=== PATIENT | male | born 1960 | race Caucasian/White ===

== ENCOUNTER → 2023-02-04 08:22 | Outpatient (BNVA) | payer SELFPAY | PROVIDERS: Family Provider Family Medicine; PCP Family Medicine; Visit Provider Family Medicine | DX: Z12.5 Encounter for screening for malignant neoplasm of prostate (principal); Z13.1 Encounter for screening for diabetes mellitus; Z51.81 Encounter for therapeutic drug level monitoring; Z13.220 Encounter for screening for lipoid disorders | CPT/HCPCS: 80053; 80061; 83036; 84153; 85025 ==

== ENCOUNTER 2023-11-12 09:14 | Day surgery (SDC) | payer SELFPAY ==
[2023-11-12] VITALS (10 sets, daily range): BP systolic 105–212; BP diastolic 64–111; PULSE 60–89; RESP 14–18; TEMP 36.3–36.6; O2SAT 95–100; BMI 29.8
--- NOTE | 2023-11-12 09:42 | ED_ITS ---
HPI - General Adult General: Chief complaint: Airway/Esophagus Foreign Body Stated complaint: sent by , food stuck in throat Time Seen by Provider: 11/12/23 09:42 History of Present Illness: 63-year-old [facility] of difficulty swallowing. Last night he was eating some fish states that seemed rather dry and then he began to have difficulty or felt like he was not able to swallow anything. When he tries to swallow liquids since then he will spit most of them back up he has had some success managing saliva he still feels like something is caught in his chest. He has had this in the past and required esophageal dilation. His last episode was nearly 20 years ago. Not on any anticoagulants. Onset (ago): hour(s) (12+) Associated symptoms: Deny chest pain, confusion, cough, diaphoresis, decreased appetite, dyspnea, fevers/chills, headache(s), malaise, nausea, rash, palpitations, seizures, short of breath, syncope, vomiting or weakness Treatments prior to arrival: none Review of Systems Const: Denies: malaise or diaphoresis Card: Denies: chest pain, palpitations or syncope Resp: Denies: dyspnea GI: Denies: nausea or vomiting : Denies: dysuria, urinary frequency or urinary urgency Musc: Denies: neck pain or back pain Skin/Breast: Denies: rash Neuro: Denies: headache(s) or confusion [facility] ED PFSH: Medical History (Updated 11/12/23 @ 11:18 by Cristiano Olmedo DO) Hypertension Surgical History (Updated 02/22/23 @ 14:30 by Leonard Marx MD) Esophageal dilatation 11/2016 History of meningioma Removed 06/05/2019 - Dr Jackman - Causing mid line shift Family History (Updated 02/22/23 @ 14:34 by Leonard Marx MD) Sister GERD (gastroesophageal reflux disease) Brother No problems noted. Father Kidney transplant recipient Social History (Updated 02/22/23 @ 14:33 by Leonard Marx MD) Smoking and tobacco/nicotine status: never used tobacco/nicotine Alcohol intake: current Substance/Drug Use: never Previous occupational history: [place] Physical Exam Const: COMMON NORMALS: no acute distress GENERAL APPEARANCE: cooperative and comfortable ORIENTATION/CONSCIOUSNESS: Yes awake, Yes oriented to person, Yes oriented to place and Yes oriented to time HENMT: COMMON NORMALS: normocephalic, atraumatic and hearing grossly normal bilaterally HEAD & SCALP: normocephalic and atraumatic Resp: COMMON NORMALS: normal respiratory effort, No retractions, No use of accessory muscles and clear to auscultation bilaterally AUSCULTATION: clear to auscultation bilaterally Cardio: COMMON NORMALS: regular rate, regular rhythm and No murmurs present (Cardio) RATE: regular rate RHYTHM: regular rhythm GI: COMMON NORMALS: Soft to palpation and No hepatosplenomegaly present AUSCULTATION: Yes normoactive bowel sounds PALPATION: Yes Soft to palpation, No Tenderness to palpation present (GI), No Guarding due to palpation present ( GI) and Yes No hepatosplenomegaly present Extremity: COMMON NORMALS: normal to inspection, capillary refill normal, no clubbing, cyanosis or edema, no calf tenderness and no pedal edema Neuro: SENSORIUM/ORIENTATION: Yes oriented to person, Yes oriented to place and Yes oriented to time Skin: COMMON NORMALS: no rashes or lesions noted GENERAL SKIN EXAM: no rashes or lesions noted Course Vital Signs: Vital signs: Vital Signs Temperature 97.8 F 11/12/23 10:20 Pulse Rate 65 11/12/23 10:20 Respiratory Rate 18 11/12/23 10:20 Blood Pressure 169/92 11/12/23 10:20 Pulse Oximetry 95 11/12/23 10:20 Oxygen Delivery Me thod Room Air 11/12/23 10:20 MDM - General Adult Medical Decision Making Esophageal food impaction discussed with Dr. Bardales will take patient to outpatient surgery for EGD and possible dilation as appropriate discharge from their Medical Records I reviewed the patient's medical records. No radiology studies performed this visit Discharge Plan Discharge Patient Disposition: Placed in Observation Clinical Impression: Esophageal obstruction due to food impaction Coding Level of Care Code ED Chrome Tanner for Salomón Hatch
[2023-11-12] MEDS: sodium chloride 0.9% 1,000 ML 30 ML IV (10:27)
[2023-11-12] MEDS: midazolam 1 mg/mL INJ 2 mL 2 MG IVP (10:28)
--- NOTE | 2023-11-12 10:37 | ANES.PREANE2 ---
Pre-Anesthetic Assessment Height/Weight: Height 2.01 m Weight 120.202 kg Temp Pulse Resp BP Pulse Ox O2 Del Method 97.8 F 65 18 169/92 95 Room Air 11/12/23 10:20 11/12/23 10:20 11/12/23 10:20 11/12/23 10:20 11/12/23 10:20 11/12/23 10:20 Operation Date: 11/12/23 11:45 Proposed Procedures p EGD with foreign body removal(Not Applicable) - Mitul Bardales MD Familial anesthetic complications: none Was Beta Celestine taken within 24 hours: N/A Was Clonidine taken within 24 hours: N/A Last intake: Intake Last Liquid Date 11/11/23 Last Liquid Time 18:00 Last Solid Date 11/11/23 Last Solid Time 18:00 Social No alcohol and No tobacco Exam alert, oriented x 3, clear to auscultation bilaterally and regular rate & rhythm Airway Mallampati: Class III Dentition: full CV/HEM Hypertension Metabolic Pre DM Anesthetic Plan ASA status: 3 Anesthesia: General Other: Food bolus Risk of > 500 ml blood loss (7ml/kg in children): No Medications/Allergies Home Medications Medication Instructions Recorded Confirmed Last Taken Type amlodipine 10 mg tablet 10 mg PO DAILY #90 tabs 02/08/23 02/08/23 Unknown Rx lisinopril 20 See Rx Instructions .Route 07/11/23 Unknown Rx mg-hydrochlorothiazide 12.5 mg .COMPLEX #90 tabs tablet carvedilol 12.5 mg tablet 12.5 mg PO BID #180 tabs 07/30/23 Unknown Rx lorazepam 0.5 mg tablet 0.5 mg PO BID PRN anxiety #7 tabs 11/12/23 Unknown Rx Allergies Allergy/AdvReac Type Severity Reaction Status Date / Time Penicillins Allergy Unknown Verified 11/12/23 09:17 Current Medications Generic Name Dose Route Start Last Admin Trade Name Freq PRN Reason Stop Dose Admin Sodium Chloride 1,000 mls @ 30 mls/hr 11/12/23 09:46 11/12/23 10:27 Sodium Chloride 0.9% IV 11/13/23 09:45 30 mls/hr .Q24H ONE Administration Midazolam HCl 2 mg 11/12/23 10:22 11/12/23 10:28 Midazolam 1 Mg/Ml Inj 2 Ml IVP 2 mg Q5M PRN Administration Preop Anxiety PFSH Anesthesia Medical History (Updated 02/22/23 @ 14:30 by Leonard Marx MD) Hypertension Surgical History (Updated 02/22/23 @ 14:30 by Leonard Marx MD) Esophageal dilatation 11/2016 History of meningioma Removed 06/05/2019 - Dr Jackman - Causing mid line shift Family History (Updated 02/22/23 @ 14:34 by Leonard Marx MD) Sister GERD (gastroesophageal reflux disease) Brother No problems noted. Father Kidney transplant recipient Social History (Updated 02/22/23 @ 14:33 by Leonard Marx MD) Smoking and tobacco/nicotine status: never used tobacco/nicotine Alcohol intake: current Substance/Drug Use: never Previous occupational history: [place] to [place] Data Anesthesia Cardiac Studies: No Data to Display
--- NOTE | 2023-11-12 11:56 | P.HP_ITS ---
Providers/Chief Complaint Primary Care Provider: Leonard Marx MD Chief Complaint: sent by , food stuck in throat History of Present Illness Antonio Harvey is a 63 year old male Who presented to the emergency department complaining of food being stuck in his throat. Per patient report he was eating dry face yesterday when he felt that something got stuck in the back of his throat, he had had this happen in the past about 20 years ago when he was eating a steak and it got stuck after that he has had several dilations of the esophagus. He is unable to swallow saliva and therefore he decided to present to the ER. Review of Systems General: Reports: 10 or more systems reviewed and unremarkable except in HPI and below Medications/Allergies Home Medications Medication Instructions Recorded Confirmed Last Taken Type amlodipine 10 mg tablet 10 mg PO DAILY #90 tabs 02/08/23 02/08/23 Unknown Rx lisinopril 20 See Rx Instructions .Route 07/11/23 Unknown Rx mg-hydrochlorothiazide 12.5 mg .COMPLEX #90 tabs tablet carvedilol 12.5 mg tablet 12.5 mg PO BID #180 tabs 07/30/23 Unknown Rx lorazepam 0.5 mg tablet 0.5 mg PO BID PRN anxiety #7 tabs 11/12/23 Unknown Rx Allergies Allergy/AdvReac Type Severity Reaction Status Date / Time Penicillins Allergy Unknown Verified 11/12/23 09:17 PFSH Acute PFSH: Medical History (Updated 11/12/23 @ 11:18 by Cristiano Olmedo DO) Hypertension Surgical History (Updated 02/22/23 @ 14:30 by Leonard Marx MD) Esophageal dilatation 11/2016 History of meningioma Removed 06/05/2019 - Dr Jackman - Causing mid line shift Family History (Updated 02/22/23 @ 14:34 by Leonard Marx MD) Sister GERD (gastroesophageal reflux disease) Brother No problems noted. Father Kidney transplant recipient Social History (Updated 02/22/23 @ 14:33 by Leonard Marx MD) Smoking and tobacco/nicotine status: never used tobacco/nicotine Alcohol intake: current Substance/Drug Use: never Previous occupational history: Used to [place] Vitals/I&O/Wt Last Vital Signs Temp 97.8 F 11/12/23 10:20 Pulse 65 11/12/23 10:20 Resp 18 11/12/23 10:20 BP 169/92 11/12/23 10:20 Pulse Ox 95 11/12/23 10:20 O2 Del Method Room Air 11/12/23 10:20 Weight last 48 hrs Weight 265 lb Physical Exam Narrative: After complete history, physical examination and review of all available clinical data the following is my assessment. Patient will benefit from Port-A-Cath placement. I have discussed all the risk and benefits of the procedure with the patient including the risk of pneumothorax requiring tube thoracostomy, risks of cannulation of the carotid artery, risk of injuring the blood vessels and heart at the level of the chest which will require emergent surgical intervention and could lead to , wound related complications including bleeding and infection, seroma formation, hematoma formation, long- term complications include infection of the catheter requiring excision, need for additional surgical procedures, nonfunction of the catheter, catheter migrat ion, catheter erosion into the skin. Patient shows understanding and wishes to proceed. Port-A-Cath placement will be booked for the next available clinical date. A&P Assessment and plan (1) Esophageal obstruction due to food impaction: Plan After complete history, physical examination and review of all available clinical data the following is my assessment. Patient will benefit from upper endoscopy with foreign body removal or disimpaction. Have discussed all the risk and benefits including the increased risk of perforation of the esophagus stomach or duodenum from the inflammation from the foreign body. I have discussed the risks of bleeding, need for additional procedures, need for transfer to higher level of care and emergent surgery. Patient agrees with the risk and benefits and wishes to proceed. Procedure will be done now and patient will be sent, after surgery. Attestations Medical Necessity Statement*: Patient will be discharged after GI procedure. Coding Level of Care Code Acute Code for Chg Fwd Diagnoses Esophageal obstruction due to food impaction T18.128A; W44.F3XA
--- NOTE | 2023-11-12 13:20 | ANE.PACU2 ---
Inpatient post-anesthesia follow up: Airway intact: Yes Vital signs: Temperature 97.4 F Pulse Rate 60 Respiratory Rate 18 Blood Pressure 122/70 Pulse Oximetry 100 Oxygen Delivery Me thod Room Air Oxygen Flow Rate Fraction of Inspir ed Oxygen Hydration adequate: Yes Nausea and vomiting: No Pain level: 1 Mental status: Baseline
== END 2023-11-12 13:23 | disposition home or self-care (01) ==
LOC: ER 09:50 → OR 10:06
PROVIDERS: Emergency Provider Family Medicine; Family Provider Family Medicine; PCP Family Medicine; Visit Provider Surgery
PROC: 0DJ08ZZ Inspection of Upper Intestinal Tract, Via Natural or Artificial Opening Endoscopic (ICD-10-PCS; CPT 43235; principal; 2023-11-12 11:45)
DX: T17.228A Food in pharynx causing other injury, initial encounter (principal); W44.8XXA Other foreign body entering into or through a natural orifice, initial encounter; I10 Essential (primary) hypertension
CPT/HCPCS: 43247; J0330; J2250; J2704; J3490; J7030

== ENCOUNTER → 2023-11-26 07:49 | Outpatient (BNVA) | payer SELFPAY | PROVIDERS: Family Provider Family Medicine; PCP Family Medicine; Visit Provider Podiatrist Foot & Ankle Surgery | DX: S92.402B Displaced unspecified fracture of left great toe, initial encounter for open fracture; W20.8XXA Other cause of strike by thrown, projected or falling object, initial encounter; M76.821 Posterior tibial tendinitis, right leg; M19.071 Primary osteoarthritis, right ankle and foot | CPT/HCPCS: 73630 ==

== ENCOUNTER → 2023-12-09 07:51 | Outpatient (BNVA) | payer SELFPAY | PROVIDERS: Family Provider Family Medicine; PCP Family Medicine; Visit Provider Podiatrist Foot & Ankle Surgery | DX: M76.821 Posterior tibial tendinitis, right leg; M19.071 Primary osteoarthritis, right ankle and foot; S92.402B Displaced unspecified fracture of left great toe, initial encounter for open fracture; X58.XXXA Exposure to other specified factors, initial encounter | CPT/HCPCS: 73630 ==

== ENCOUNTER → 2023-12-23 07:33 | Outpatient (BNVA) | payer SELFPAY | PROVIDERS: Family Provider Family Medicine; PCP Family Medicine; Visit Provider Podiatrist Foot & Ankle Surgery | DX: M76.821 Posterior tibial tendinitis, right leg (principal); M19.071 Primary osteoarthritis, right ankle and foot; S92.402B Displaced unspecified fracture of left great toe, initial encounter for open fracture; X58.XXXA Exposure to other specified factors, initial encounter | CPT/HCPCS: 73630 ==

== ENCOUNTER → 2024-01-20 07:49 | Outpatient (BNVA) | payer OTHER, SELFPAY | PROVIDERS: Family Provider Family Medicine; PCP Family Medicine; Visit Provider Podiatrist Foot & Ankle Surgery | DX: M19.071 Primary osteoarthritis, right ankle and foot; M76.821 Posterior tibial tendinitis, right leg; S92.425A Nondisplaced fracture of distal phalanx of left great toe, initial encounter for closed fracture; S93.324A Dislocation of tarsometatarsal joint of right foot, initial encounter; X58.XXXA Exposure to other specified factors, initial encounter | CPT/HCPCS: 36415; 73630; 80053; 83036; 85025; 85651 ==

== ENCOUNTER → 2024-09-14 08:15 | Outpatient (BNVA) | payer OTHER, SELFPAY | PROVIDERS: Family Provider Family Medicine; PCP Family Medicine; Visit Provider Podiatrist Foot & Ankle Surgery | DX: M79.671 Pain in right foot (principal); Z01.818 Encounter for other preprocedural examination; M76.821 Posterior tibial tendinitis, right leg; M19.071 Primary osteoarthritis, right ankle and foot; S93.324S Dislocation of tarsometatarsal joint of right foot, sequela; X58.XXXS Exposure to other specified factors, sequela | CPT/HCPCS: 73630 ==

== ENCOUNTER 2024-10-02 07:46 | Day surgery (SDC) | payer OTHER, SELFPAY ==
[2024-10-02] VITALS (9 sets, daily range): BP systolic 119–178; BP diastolic 74–101; PULSE 54–64; RESP 16–18; TEMP 36.2–37.1; O2SAT 94–100; BMI 30.4
--- NOTE | 2024-10-02 | XR_ITS ---
WS: [id number] Right foot, C-arm fluoroscopy views, 10/02/2024 Clinical Data: [facility] PICS Comparison: Right foot, 09/14/2024 Findings: Dr. Vasquez performed surgery on the articulation between the right first and second metatarsal bases and their corresponding cuneiforms. XR/XR foot RT min 3V* [id number] Impression: Surgical intervention at base of right first and second metatarsals.
[2024-10-02] MEDS: sodium chloride 0.9% 1,000 ML 30 ML IV (08:13)
--- NOTE | 2024-10-02 09:40 | ANES.PREANE2 ---
Pre-Anesthetic Assessment Height/Weight: Height 2.01 m Weight 122.47 kg Temp Pulse Resp BP Pulse Ox O2 Del Method 97.1 F L 61 18 178/101 100 Room Air 10/02/24 08:00 10/02/24 08:00 10/02/24 08:00 10/02/24 08:00 10/02/24 08:00 10/02/24 08:02 Preop Diagnosis: Right Lisfranc dislocation Operation Date: 10/02/24 09:45 Proposed Procedures p Right first and second tarsometatarsal joint fusion(Right) - Omero Vasquez DPM s Calcaneal autograft right foot(Right) - Omero Vasquez DPM Familial anesthetic complications: None Was Beta Celestine taken within 24 hours: N/A Was Clonidine taken within 24 hours: N/A Last intake: Intake Last Liquid Date 10/02/24 Last Liquid Time 06:00 Last Solid Date 10/01/24 Last Solid Time 19:00 Social No alcohol and No tobacco Exam alert, oriented x 3, clear to auscultation bilaterally and regular rate & rhythm Airway Mallampati: Class II Dentition: other (a few missing) CV/HEM Hypertension Metabolic Diabetes Mellitus Anesthetic Plan ASA status: 2 Anesthesia: General Risk of > 500 ml blood loss (7ml/kg in children): No Medications/Allergies Home Medications Medication Instructions Recorded Confirmed Last Taken Type carvedilol 12.5 mg tablet 12.5 mg PO BID #180 tabs 07/30/23 10/01/24 10/02/24 Rx Walking boot #1 ea 11/25/23 09/14/24 Unknown Rx amlodipine 10 mg tablet 10 mg PO DAILY #90 tabs 12/04/23 10/01/24 10/02/24 Rx Mezzo style AFO #1 ea 01/22/24 09/14/24 Unknown Rx Compression Socks 30mm #1 ea 02/03/24 09/14/24 Unknown Rx lisinopril 20 1 tab PO DAILY 10/01/24 10/01/24 10/01/24 History mg-hydrochlorothiazide 12.5 mg tablet Allergies Allergy/AdvReac Type Severity Reaction Status Date / Time Penicillins Allergy Unknown Verified 10/02/24 07:57 Current Medications Generic Name Dose Route Start Last Admin Trade Name Freq PRN Reason Stop Dose Admin Sodium Chloride 1,000 mls @ 30 mls/hr 10/02/24 08:00 10/02/24 08:13 Sodium Chloride 0.9% IV 10/03/24 07:59 30 mls/hr .Q24H NORMA Administration PFSH Anesthesia Medical History Hypertension Surgical History Esophageal dilatation 11/2016 History of meningioma Removed 06/05/2019 - Dr Jackman - Causing mid line shift Family History Sister GERD (gastroesophageal reflux disease) Brother No problems noted. Father Kidney transplant recipient after complications from a foot infection Peripheral neuropathy Social History Smoking and tobacco/nicotine status: never used tobacco/nicotine Alcohol intake: current Substance/Drug Use: never Previous occupational history: [place] to [place] Data Anesthesia Cardiac Studies: No Data to Display
--- NOTE | 2024-10-02 10:11 | W.PM.OPSUD ---
Surgery/Procedure H&P Update DATE OF PROCEDURE: October 02, 2024 DATE H&P PERFORMED: 09/14/24 H&P UPDATE INFORMATION: I have reviewed H&P completed within last 30 days, I have examined patient prior to procedure, No changes to prior documentation and H&P is in [facility] [place] [facility] EMR on date indicated PREOP DIAGNOSIS: Right Lisfranc dislocation PLANNED PROCEDURE: Operation Date: 10/02/24 09:45 Proposed Procedures p Right first and second tarsometatarsal joint fusion(Right) - Omero Vasquez DPM s Calcaneal autograft right foot(Right) - Omero Vasquez DPM
[2024-10-02] MEDS: clindamycin 600 MG/50 ML PREMIX 100 MG IV (10:37)
[2024-10-02] MEDS: BUPivacaine 0.5% INJ 10 mL 20 ML INJECTION (11:04)
[2024-10-02] MEDS: BUPivacaine liposome 13.3 mg/mL SDV 20 mL 266 MG INJECTION (11:04)
--- NOTE | 2024-10-02 13:31 | P.BOP_ITS ---
Date of Procedure: 01/03/24 Surgeon: Omero Vasquez DPM [employer] Supervisor(s): Donna Ibarra Heather Procedure(s) performed: Right midfoot fusion Findings of the procedure(s): None Estimated blood loss: 5 mL Specimen(s) removed: None Post-operative diagnosis: Right midfoot arthritis sequela of Lisfranc dislocation
--- NOTE | 2024-10-02 13:33 | PM.OP ---
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 CPT code 85493 Implants: Royal 4 mm fully threaded screw x 2 headless, cannulated Royal straight slanted plate with 3.5 mm locking screws Royal headed 4 mm partially-threaded cannulated screw Royal primary Lapidus plate with 3.5 mm locking and nonlocking screws. 3-0 Vicryl, 4-0 Vicryl, skin jennifer Specimens removed/disposition: None Pathology: None Surgeon: Omero Vasquez DPM [employer]: Sabrina Ibarra Kylie Estimated blood loss: 5 93 IV fluids: See intraoperative documentation Urine output: None Complications: None Brief History: Patient examined and evaluated, findings and treatment options discussed with patient at length. X-ray of the right foot 3 view demonstrates erosive changes at the first and second tarsometatarsal joint more aggressively erosive changes to the distal aspect of the medial and intermediate cuneiform, gapping and widening of the first intermetatarsal space at the Lisfranc complex indicative of Lisfranc instability and disruption, there is joint space narrowing of the first and second tarsometatarsal joint and forefoot abducted on midfoot. Discussed surgical options consisting of autogenous bone graft and first and second tarsometatarsal joint fusion of the right foot patient would like to proceed for this to be scheduled outpatient October 02, 2024. I reviewed at length with the patient, the risks, potential complications, benefits, alternatives, expectations, and typical outcomes associated with the surgery. The risks and potential complications were explained in detail, including but not limited to infection, wound dehiscence or soft tissue complications, bleeding and hematoma, chronic edema, neuritis or nerve damage producing numbness or chronic pain, CRPS, failure to relieve pain or worsening pain, thick / painful / unsightly scar, limited motion / stiffness, malposition, delayed union, malunion, or nonunion, fracture, reaction to implants, anesthetic complications, venous thromboembolism, and deformity recurrence. I discussed the notion of no regrets with the patient as it pertains to complications and outcomes. The patient seemed to understand the nature of the proposed care and required convalescence. They asked appropriate questions, answered to their satisfaction. They are aware no guarantees can be made as to a satisfactory outcome and they understand there may be other possible unforeseen complications or outcomes not listed here that will be treated accordingly if they arise. There were no written or implied guarantees given to the patient. They gave informed consent to proceed. Procedure: Under mild sedation the patient was brought to the operating room and placed onto the operating table in supine position. A timeout was performed. Anesthesia was then administered by the anesthesia service. Local anesthesia was injected by myself consisting of a proximal Maria block and a V-block to the right foot utilizing 20 cc of 0.5% Marcaine plain with an additional 20 cc of Exparel infiltrated subcutaneously in a grid like fashion per manufacture recommendations and technique. Well-padded pneumatic tourniquet applied to the right ankle. The right lower extremity was then scrubbed, prepped and draped utilizing normal aseptic technique. Right foot and ankle were then exanguinated with an Esmarch bandage and tourniquet inflated to 250 mmHg. Attention was directed to the right foot where a linear incision was performed medial and parallel to the extensor hallucis longus tendon at the level of the right first tarsometatarsal joint through skin with a #15 blade with dissection carried down to periosteum utilizing sharp and blunt technique. Care was taken to retract and preserve neurovascular and tendon structures. All bleeders were ligated and cauterized as necessary. Periosteal incision was made and the first tarsometatarsal joint was distracted with self-retaining distractor and prepped for arthrodesis, noted to have instability at this joint as well as joint cartilage loss. Preparation for fusion was done sharply with curettage, for scaling and fenestrating drill bit followed by fixation with a homerun screw from distal dorsal to plantar proximal not violating the cuneiform navicular joint and an additional locking plate medially with 3.5 mm locking and nonlocking screws with excellent bony apposition and compression noted. Attention was then directed to the second ray where a dorsal incision was performed through skin with #15 blade directly over the second metatarsal including second metatarsal base and intermediate cuneiform with dissection carried down through subcutaneous tissue to the layer periosteum utilizing sharp and blunt technique. Care was taken to retract and preserve neurovascular and tendinous structures. All bleeders were ligated and cauterized as necessary. Periosteal Incision was performed in the base of the second metatarsal of the right foot and distal articular surface of the intermediate cuneiform were freed from the soft tissue and capsular attachments. Erosive changes at the medial cuneiform from arthrosis appreciated however remaining bone had appropriate density. This area was prepped for arthrodesis in similar fashion with curettage, for scaling and subchondral drilling with fenestrating drill bit this was reduced utilizing a fracture reduction clamp medially and fixated with a dorsal locking plate and this was paragon straight slanted with 3.5 mm locking and nonlocking screws with excellent bony apposition and compression noted. 2 intercuneiform screws were headed 4 mm in diameter and fully threaded from medial to lateral for additional intercuneiform stability utilizing live C arm and care taken to not violate adjacent joints this was confirmed with excellent hardware placement in all 3 planes at arthrodesis sites and inner cuneiform screws and no adjacent joints were violated. Incisions were irrigated with saline solution and closed in a layered fashion with periosteum reapproximated 3-0 Vicryl. Subcutaneous tissue with 4-0 Vicryl and skin with jennifer. The incisions were dressed with Adaptic, sterile 4 x 4's, Kerlix and Jaylan wrap followed by application of a well-padded multilayer compressive posterior splint with foot and ankle in neutral position. Tourniquet was deflated and a prompt hyperemic response is noted to the distal digits of the right foot. Patient tolerated the procedure and anesthesia well and was transferred to the PACU with vital signs stable and vascular status intact. Following a period of postoperative monitoring he will be discharged home was given at home care instructions and scheduled follow-up as well as myself number to contact me with any postoperative questions or concerns.
[2024-10-02] MEDS: HYDROcodone-acetaminophen 10-325 mg Tablet 1 TAB PO (13:42)
--- NOTE | 2024-10-02 14:05 | ANE.PACU2 ---
Inpatient post-anesthesia follow up: Airway intact: Yes Vital signs: Temperature 98.7 F Pulse Rate 62 Respiratory Rate 16 Blood Pressure 144/77 Pulse Oximetry 98 Oxygen Delivery Me thod Room Air Oxygen Flow Rate 10 Fraction of Inspir ed Oxygen Hydration adequate: Yes Nausea and vomiting: No Pain level: 1 Mental status: Baseline
== END 2024-10-02 14:09 | disposition home or self-care (01) ==
PROVIDERS: Family Provider Family Medicine; PCP Family Medicine; Visit Provider Podiatrist Foot & Ankle Surgery
PROC: (CPT 28740; principal; 2024-10-02 09:35)
PROC: (CPT 28730; 2024-10-02 09:35)
DX: M19.071 Primary osteoarthritis, right ankle and foot (principal); S93.324S Dislocation of tarsometatarsal joint of right foot, sequela; X58.XXXS Exposure to other specified factors, sequela; M76.821 Posterior tibial tendinitis, right leg; I10 Essential (primary) hypertension; E11.9 Type 2 diabetes mellitus without complications
CPT/HCPCS: 28730; 73630; 76000; C1713; C9290; J1100; J2405; J2704; J3010; J3490; J7030

== ENCOUNTER → 2024-10-16 10:26 | Outpatient (BNVA) | payer OTHER, SELFPAY | PROVIDERS: Family Provider Family Medicine; PCP Family Medicine; Visit Provider Podiatrist Foot & Ankle Surgery | DX: Z98.890 Other specified postprocedural states (principal) | CPT/HCPCS: 73630 ==

== ENCOUNTER 2024-10-16 10:57 | Outpatient (CLI) | payer OTHER, SELFPAY | END 2024-10-16 10:58 | disposition home or self-care (01) | LOC: SPT 10:57 | PROVIDERS: Family Provider Family Medicine; PCP Family Medicine; Visit Provider Podiatrist Foot & Ankle Surgery | DX: Z47.89 Encounter for other orthopedic aftercare (principal) | CPT/HCPCS: L4361 ==

== ENCOUNTER → 2024-10-29 13:56 | Outpatient (BNVA) | payer OTHER, SELFPAY | PROVIDERS: Family Provider Family Medicine; PCP Family Medicine; Visit Provider Podiatrist Foot & Ankle Surgery | DX: Z98.890 Other specified postprocedural states (principal) | CPT/HCPCS: 73630 ==

== ENCOUNTER → 2024-11-12 13:18 | Outpatient (BNVA) | payer OTHER, SELFPAY | PROVIDERS: Family Provider Family Medicine; PCP Family Medicine; Visit Provider Podiatrist Foot & Ankle Surgery | DX: Z98.890 Other specified postprocedural states (principal) | CPT/HCPCS: 73630 ==

== ENCOUNTER → 2024-12-10 13:13 | Outpatient (BNVA) | payer OTHER, SELFPAY | PROVIDERS: Family Provider Family Medicine; PCP Family Medicine; Visit Provider Podiatrist Foot & Ankle Surgery | DX: Z98.890 Other specified postprocedural states (principal); R73.03 Prediabetes; M21.41 Flat foot [pes planus] (acquired), right foot; M21.42 Flat foot [pes planus] (acquired), left foot | CPT/HCPCS: 73630 ==

== ENCOUNTER → 2024-12-31 14:03 | Outpatient (BNVA) | payer OTHER, SELFPAY | PROVIDERS: Family Provider Family Medicine; PCP Family Medicine; Visit Provider Podiatrist Foot & Ankle Surgery | DX: Z98.890 Other specified postprocedural states (principal); R73.03 Prediabetes; M21.41 Flat foot [pes planus] (acquired), right foot; M21.42 Flat foot [pes planus] (acquired), left foot | CPT/HCPCS: 73630 ==

== ENCOUNTER 2025-02-01 11:27 | Outpatient (CLI) | payer OTHER, SELFPAY | END 2025-02-01 11:28 | disposition home or self-care (01) | LOC: SPT 11:27 | PROVIDERS: Family Provider Family Medicine; PCP Family Medicine; Visit Provider Podiatrist Foot & Ankle Surgery | DX: Z46.89 Encounter for fitting and adjustment of other specified devices (principal); M21.41 Flat foot [pes planus] (acquired), right foot; M21.42 Flat foot [pes planus] (acquired), left foot | CPT/HCPCS: L3030 ==

== ENCOUNTER → 2025-02-10 07:23 | Outpatient (BNVA) | payer OTHER, SELFPAY | PROVIDERS: Family Provider Family Medicine; PCP Family Medicine; Visit Provider Podiatrist Foot & Ankle Surgery | DX: Z98.890 Other specified postprocedural states (principal); R73.03 Prediabetes; M21.41 Flat foot [pes planus] (acquired), right foot; M21.42 Flat foot [pes planus] (acquired), left foot | CPT/HCPCS: 73630 ==

== ENCOUNTER → 2025-08-16 11:35 | Outpatient (BNVA) | payer OTHER, SELFPAY | PROVIDERS: Family Provider Family Medicine; PCP Family Medicine; Visit Provider Family Medicine | DX: R22.0 Localized swelling, mass and lump, head (principal); Z51.81 Encounter for therapeutic drug level monitoring; R73.03 Prediabetes; Z13.6 Encounter for screening for cardiovascular disorders; R97.20 Elevated prostate specific antigen [PSA]; R53.81 Other malaise; R53.83 Other fatigue | CPT/HCPCS: 80053; 80061; 83036; 84153; 84443; 85025; 86003; 86008 ==